=== PATIENT | male | born 1950 | race Caucasian/White ===

== ENCOUNTER 2018-10-08 21:15 | Emergency (ER) | payer SELFPAY ==
[~2018-10-08] VITALS: Ht 172.7 cm; Wt 82.3 kg
[~2018-10-08 21:15] MED LIST: ATARAX 25MG25 MG/TAB PO; CLARITIN 1010 MG/TAB PO; PREDNISONE20 MG PO
[2018-10-08 21:20] VITALS: TEMP 98.1
[2018-10-08 21:47] LABS: BASO % 0.7 % (0.0-2.0); EOS # 0.2 (0.0-0.7); EOS % 3.6 % (0-4.0); GRAN # 3.3 (1.4-6.5); GRAN % 53.3 % (42.2-75.2); HEMATOCRIT 42.1 % (42.0-52.0); LYMPH % 32.3 % (20.0-51.0); MEAN CELL VOLUME 89 fl (80.0-100.0); MEAN CORPUSCULAR HEMOGLOBIN 32 pg (27.0-31.0); MEAN CORPUSCULAR HGB CONC 36 g/dl (33.0-37.0); MEAN PLATELET VOLUME 9.6 fl (7.4-10.4); MONO # 0.6 (0.1-0.6); MONO % 9.3 % (1.7-9.3); PLATELET COUNT 231 K/mm3 (130-400); RED BLOOD COUNT 4.73 M/mm3 (4.20-5.60); REDCELL DISTRIBUTION WIDTH-CV 12.1 % (11.5-14.5)
[2018-10-08 21:50] LABS: PROTHROMBIN TIME 11.7 SECONDS (9.7-12.8)
[2018-10-08 21:57] LABS: ALANINE AMINOTRANSFERASE 54 U/L (21-72); ALKALINE PHOSPHATASE 96 U/L (50-136); ANION GAP 6 mmol/L (7-16); AST,SGOT 59 U/L (15-37); BILIRUBIN,TOTAL 0.7 mg/dL (0.0-1.0); BLOOD UREA NITROGEN 21 mg/dL (9-20); CALCIUM 9.1 mg/dL (8.4-10.2); CARBON DIOXIDE 30 mmol/L (22-30); CHLORIDE 103 mmol/L (98-107); CREATINE KINASE 194 U/L (55-170); CREATININE, serum 0.74 mg/dL (0.66-1.25); GLUCOSE 155 mg/dL (74-106); LIPASE 41 U/L (23-300); POTASSIUM 4.1 mmol/L (3.4-5.0); SODIUM 139 mmol/L (137-145); TOTAL PROTEIN 7.2 gm/dL (6.4-8.2)
[2018-10-08 22:11] LABS: TROPONIN-I < 0.012 ng/mL (0.000-0.034)
[2018-10-09 03:28] VITALS: BP 145/83; PULSE 80
[2018-10-09] MEDS ORDERED: NITROSTAT0.4 MG/TAB SL (03:32)
== END 2018-10-09 03:28 | disposition left against medical advice (07) ==
LOC: COL.ER 21:15
PROVIDERS: Emergency Medicine
DX: R07.89 Other chest pain (principal)

== ENCOUNTER 2020-04-11 14:27 | Emergency (ER) | payer SELFPAY ==
[~2020-04-11] VITALS: Ht 172.7 cm; Wt 81.8 kg
[~2020-04-11 14:27] MED LIST changes: +NITROSTAT0.4 MG/TAB SL
[2020-04-11 15:39] LABS: BASO % 0.3 % (0.0-2.0); EOS % 0.1 % (0-4.0); GRAN # 9.2 (1.4-6.5); GRAN % 86.4 % (42.2-75.2); HEMATOCRIT 40.7 % (42.0-52.0); HEMOGLOBIN 13.9 g/dl (13.5-18.0); LYMPH # 0.8 (1.2-3.4); MEAN CELL VOLUME 91 fl (80.0-100.0); MEAN CORPUSCULAR HEMOGLOBIN 31 pg (27.0-31.0); MEAN CORPUSCULAR HGB CONC 34 g/dl (33.0-37.0); MEAN PLATELET VOLUME 9.6 fl (7.4-10.4); MONO # 0.6 (0.1-0.6); MONO % 5.8 % (1.7-9.3); PLATELET COUNT 187 K/mm3 (130-400); RED BLOOD COUNT 4.47 M/mm3 (4.20-5.60); REDCELL DISTRIBUTION WIDTH-CV 12.6 % (11.5-14.5)
[2020-04-11 15:51] LABS: ALBUMIN 3.9 gm/dL (3.5-5.0); C-REACTIVE PROTEIN 0.6 mg/dL (0.0-0.9); CREATININE, serum 0.61 (0.66-1.25); POTASSIUM 3.6 mmol/L (3.4-5.0); TOTAL PROTEIN 7.1 gm/dL (6.4-8.2)
[2020-04-11 17:28] LABS: COLLECTION METHOD CLEAN CATCH
[2020-04-11] MEDS ORDERED: PHENERGAN 25 TA25 MG PO (17:36)
[2020-04-11] MEDS ORDERED: NORCO 325 MG-51 TAB PO (17:36)
[2020-04-11] MEDS ORDERED: CIPRO 500MG TA500 MG PO (17:36)
[2020-04-11 17:39] LABS: MUCOUS Present /lpf; PH 7 (5-8); SQUAMOUS EPITHELIAL None Seen /hpf; URINE APPEARANCE Hazy; URINE BACTERIA Rare /hpf; URINE BILIRUBIN Negative (NEGATIVE); URINE BLOOD Negative (NEGATIVE); URINE COLOR Yellow; URINE GLUCOSE Negative (NEGATIVE); URINE KETONE Negative (NEGATIVE); URINE LEUKOCYTE ESTERASE Negative (NEGATIVE); URINE NITRATE Negative (NEGATIVE); URINE PROTEIN(semi-quant) Negative (NEGATIVE); URINE RBC 0-2 /hpf; URINE UROBILINOGEN Negative (NEGATIVE)
[2020-04-11 18:18] VITALS: BP 148/54; PULSE 55; TEMP 98.1
== END 2020-04-11 18:21 | disposition home or self-care (01) ==
LOC: COL.ER 14:27
PROVIDERS: Emergency Medicine
DX: R59.1 Generalized enlarged lymph nodes (principal)
CPT/HCPCS: J1170; J1885; J2405; J7030; Q9967

== ENCOUNTER → 2020-05-09 | Outpatient (CLI) | payer SELFPAY ==
[~2020-05-09] VITALS: Ht 172.7 cm; Wt 80.0 kg
[2020-05-09] VITALS (15 sets, daily range): BP systolic 99–147; BP diastolic 67–117; PULSE 52–62
[~2020-05-09] MED LIST changes: +CIPRO 500MG TA500 MG PO; +MULTI VITAMINS1 TAB PO; +NORCO 325 MG-51 TAB PO; +PHENERGAN 25 TA25 MG PO
--- NOTE | 2020-05-09 13:10 | NUR ---
PT AMBULATORY TO CT. POSITIONED AND MONITORING EQUIPMENT PLACED. IMAGING DONE AND SENT
== END ==
LOC: COL.RAD 11:54
DX: C61 Malignant neoplasm of prostate (principal); R59.0 Localized enlarged lymph nodes

== ENCOUNTER 2020-08-16 22:01 | Emergency (ER) | payer SELFPAY ==
[~2020-08-16] VITALS: Ht 172.7 cm; Wt 72.7 kg
[~2020-08-16 22:01] MED LIST changes: +FLOMAX 0.40.4 MG/CAP PO; +ZOFRAN ODT4 MG PO
[2020-08-16 22:12] VITALS: TEMP 98.5
[2020-08-16] MEDS ORDERED: CIPRO 500MG TA500 MG PO (23:01)
[2020-08-16 23:26] LABS: COLLECTION METHOD CATHETER
[2020-08-16 23:42] LABS: MUCOUS Present /lpf; PH 6 (5-8); SQUAMOUS EPITHELIAL None Seen /hpf; URINE APPEARANCE Cloudy; URINE BACTERIA Rare /hpf; URINE BILIRUBIN Negative (NEGATIVE); URINE BLOOD 1+ (NEGATIVE); URINE COLOR Yellow; URINE GLUCOSE Negative (NEGATIVE); URINE KETONE Negative (NEGATIVE); URINE LEUKOCYTE ESTERASE 2+ (NEGATIVE); URINE NITRATE Positive (NEGATIVE); URINE PROTEIN(semi-quant) 2+ (NEGATIVE); URINE RBC >50 /hpf; URINE UROBILINOGEN Negative (NEGATIVE)
[2020-08-17] VITALS: BP 133/72; PULSE 76
== END 2020-08-17 00:10 | disposition home or self-care (01) ==
LOC: COL.ER 22:01
PROVIDERS: Emergency Medicine
DX: T83.098A Other mechanical complication of other urinary catheter, initial encounter (principal); R33.9 Retention of urine, unspecified; N17.9 Acute kidney failure, unspecified; Z85.46 Personal history of malignant neoplasm of prostate

== ENCOUNTER 2020-09-07 19:11 | Emergency (ER) | payer SELFPAY ==
[~2020-09-07] VITALS: Ht 175.3 cm; Wt 78.6 kg
[2020-09-07 19:19] VITALS: TEMP 98.2
[2020-09-07 19:55] LABS: COLLECTION METHOD CATHETER
[2020-09-07 20:02] LABS: PH 7 (5-8); SQUAMOUS EPITHELIAL None Seen /hpf; URINE APPEARANCE Hazy; URINE BACTERIA Rare /hpf; URINE BILIRUBIN Negative (NEGATIVE); URINE BLOOD 3+ (NEGATIVE); URINE COLOR Yellow; URINE GLUCOSE Negative (NEGATIVE); URINE KETONE Negative (NEGATIVE); URINE LEUKOCYTE ESTERASE 3+ (NEGATIVE); URINE NITRATE Negative (NEGATIVE); URINE PROTEIN(semi-quant) Negative (NEGATIVE); URINE RBC >50 /hpf; URINE UROBILINOGEN Negative (NEGATIVE)
[2020-09-07] MEDS ORDERED: MACROBID 1100 MG/CAP PO (20:18)
[2020-09-07 20:30] VITALS: BP 132/78; PULSE 66
[2020-09-08] MEDS ORDERED: CIPRO 500MG TA500 MG PO (17:21)
== END 2020-09-07 20:30 | disposition home or self-care (01) ==
LOC: COL.ER 19:11
PROVIDERS: Emergency Medicine
DX: R33.9 Retention of urine, unspecified (principal); C61 Malignant neoplasm of prostate; Z46.6 Encounter for fitting and adjustment of urinary device; Z79.2 Long term (current) use of antibiotics

== ENCOUNTER 2020-09-24 20:30 | Emergency (ER) | payer SELFPAY ==
[~2020-09-24] VITALS: Ht 167.6 cm; Wt 79.5 kg
[~2020-09-24 20:30] MED LIST changes: +MACROBID 1100 MG/CAP PO
[2020-09-24 20:39] VITALS: TEMP 97.9
[2020-09-24 21:45] VITALS: BP 154/89; PULSE 74
== END 2020-09-24 21:45 | disposition home or self-care (01) ==
LOC: COL.ER 20:30
DX: T83.098A Other mechanical complication of other urinary catheter, initial encounter (principal); Z85.46 Personal history of malignant neoplasm of prostate

== ENCOUNTER 2020-11-07 12:10 | Day surgery (SDC) | payer SELFPAY ==
[2020-11-07] VITALS (10 sets, daily range): BP systolic 126–144; BP diastolic 53–86; PULSE 84–90; TEMP 98–98.8
[~2020-11-07] VITALS: Ht 170.2 cm; Wt 83.7 kg
--- NOTE | 2020-11-07 13:57 | NUR ---
TO RM 3 PER OWN WILL ACCOMPANIED WITH DAUGHTER. PATIENT ONLY SPEAKS LAO. DAUGHTER ABLE TO TRANSLATE. PATIENT ALERT ORIENTED X3, VERBALIZED UNDERSTANDING AND SIGNED CONSENT.
[2020-11-07] MEDS ORDERED: ONE-A-DAY ESSE1 EACH PO (14:00)
--- NOTE | 2020-11-07 14:08 | NUR ---
DR SARGENT TALKED TO LIO AND HIS DAUGHTER IN [place].
--- NOTE | 2020-11-07 14:19 | NUR ---
TALKING TO ANESTHESIA
--- NOTE | 2020-11-07 14:28 | NUR ---
SURGERY TO BE AT 15OO, DUE TO PATIENT EATING AT 0900.
--- NOTE | 2020-11-07 19:19 | NUR ---
Patient has done well since up from OR. Alert and oriented x 3. Gardiner to DD with CBI infusing at moderate rate when patient first arrived from OR, CBI rate decreased to slow rate with patient having clear pink urine. SCDs to BLE. Post op VSS and post op fluids infusing per orders. Patient has been up to restroom with stand by assist and steady gait. Denies pain at this time. Denies further needs at this time. Reported off to concrete bucket loader.
--- NOTE | 2020-11-07 19:22 | NUR ---
Received report from Lachelle. Seen patient awake in bed. He is alert and oriented. With 3 way warner catheter CBI draining pink urine. With IV on left forearm infusing NS at 75ml/hr. He denies pain. Call light within reach.
[2020-11-08 00:15] VITALS: BP 130/63; PULSE 80; TEMP 98.4
[2020-11-08 04:05] VITALS: BP 121/68; PULSE 63; TEMP 98.7
--- NOTE | 2020-11-08 06:30 | NUR ---
Report received from RISSA Buckley. PT in bed resting, denies needs, CBI running at slow rate, urine is peach and clear. Will continue to monitor.
--- NOTE | 2020-11-08 06:37 | NUR ---
Patient had uneventful night. He denies pain. CBI draining well with pinkish urine. He was able to get up and go to the bathroom with standby assist.
[2020-11-08 07:32] VITALS: BP 131/66; PULSE 68; TEMP 98.6
[2020-11-08] MEDS ORDERED: FLOMAX 0.40.4 MG/CAP PO (08:16)
--- NOTE | 2020-11-08 08:56 | NUR ---
Assessment charted. Pt kinyarwanda speaking only, discussed to the best of my abilities that we will stop the CBI and try and remove the catheter shortly and trial wihtout it, if things go well per Wilfredo BLANCA with Urology pt can discharge today. pT denies any pain, up ad jacob, states he is passing gas but no bowel movement yet. States he did have diarrhea before surgery. IVF to LFA. Will continue to monitor.
--- NOTE | 2020-11-08 10:01 | NUR ---
[facility] met with the patient to complete intake. The patient lives in [place] with his , Babita and daughter, Louann. The patient denies DME use and is independent with ADLs. The patient's PCP is Dr. Park and patient receives medications from [facility]. The patient does not have advanced directives. The patient plans to return home at discharge with Louann providing transportation. NEDA contacted Dr. Park's office to set up follow up appointment. The appointment is set for Friday, 11/15 at 1100. NEDA attempted to contact Louann to review the discharge plan, left message. There are no additional needs at this time.
--- NOTE | 2020-11-08 10:20 | NUR ---
Removed CBI catheter per verbal order from EVANGELIST Villalobos. PT tolerated well, instilled 200 ml of CBI into the bladder prior to removal. Pt able to void shortly after, urine is red and clear with 1 large clot in it. Will conitnue to monitor.
[2020-11-08 12:00] VITALS: BP 150/82; PULSE 66; TEMP 97.7
--- NOTE | 2020-11-08 13:00 | NUR ---
Discharge teaching completed at this time. INT dc'd, tip itnact. Reviewed discharge instructions, when to call doctor, appointmetns for f/u. Pt verbalized understanding. Called daughter and verified with her in vietnamese. Escorted pt out by myself, pt left with all belongings, daughter to drive home, criteria met.
--- NOTE | 2020-11-08 13:06 | NUR ---
First visit from the cena. No needs right now.
== END 2020-11-08 13:15 | disposition home or self-care (01) ==
LOC: SDCO 12:10 → SURG 12:10 → SDCO 15:00 → SURG 17:56 → SDCO 11-08 13:15 → SURG 11-08 13:15
DX: N40.1 Benign prostatic hyperplasia with lower urinary tract symptoms (principal); R33.8 Other retention of urine; C61 Malignant neoplasm of prostate; C79.9 Secondary malignant neoplasm of unspecified site; Z20.828 Contact with and (suspected) exposure to other viral communicable diseases; Z79.818 Long term (current) use of other agents affecting estrogen receptors and estrogen levels; Z79.899 Other long term (current) drug therapy
CPT/HCPCS: J0330; J0690; J1100; J2405; J2704; J3010; J7030; J7120

== ENCOUNTER → 2021-01-16 | Outpatient (CLI) | payer SELFPAY ==
[~2021-01-16] MED LIST changes: +ONE-A-DAY ESSE1 EACH PO
== END ==
LOC: COL.RAD 17:06
DX: M47.816 Spondylosis without myelopathy or radiculopathy, lumbar region (principal); Q78.2 Osteopetrosis; M43.9 Deforming dorsopathy, unspecified; M85.88 Other specified disorders of bone density and structure, other site; M48.061 Spinal stenosis, lumbar region without neurogenic claudication; M48.07 Spinal stenosis, lumbosacral region; Z85.46 Personal history of malignant neoplasm of prostate